=== PATIENT | female | born 1940 | race American Indian/Alaskan Native ===

== ENCOUNTER 2017-09-10 10:07 | Day surgery (SDC) | payer MEDICARE ==
[2017-09-10] MEDS ORDERED: APRESOLINE IV SCH (10:44)
[2017-09-10] MEDS ORDERED: DILAUDID IV PRN (11:20)
--- NOTE | 2017-09-10 11:20 | Anesthesia Day of Surgery ---
Anesthesia Day of Surgery - Day of Surgery Patient Examined: Yes Patient H&P Reviewed: Yes Patient is NPO: Yes
--- NOTE | 2017-09-10 11:20 | Anesthesia Consultation ---
Anesthesia Consult and Med Hx Date of service: 09/10/17 - Airway Anesthetic Teeth Evaluation: Good ROM Head & Neck: Adequate Mental/Hyoid Distance: Adequate Mallampati Class: Class II Intubation Access Assessment: Good - Pulmonary Exam CTA: Yes - Cardiac Exam Cardiac Exam: RRR - Pre-Operative Health Status ASA Pre-Surgery Classification: ASA2 Proposed Anesthetic Plan: General - Pulmonary Hx Smoking: Yes (QUIT 1996) - Cardiovascular System Hx Hypertension: Yes (2005) Hx Heart Murmur: Yes - Central Nervous System Hx Psychiatric Problems: No - Other Systems Hx Alcohol Use: Yes (OCCA) Hx Substance Use: No Hx Cancer: No
[2017-09-10] MEDS ORDERED: NACL 0.9% 1000 ML 1,000 ML IV SCH (11:27)
[2017-09-10] MEDS ORDERED: PEPCID IV NR (11:27)
[2017-09-10] MEDS ORDERED: ANCEF/STERILE WATER 2 GM/20 ML 2 GM/20 ML SYRINGE IV ONE (12:00)
[2017-09-10] MEDS ORDERED: DIPRIVAN 10 MG/ML IV ONE (12:16)
[2017-09-10] MEDS ORDERED: ZOFRAN ONE (12:17)
[2017-09-10] MEDS ORDERED: SUBLIMAZE ONE (12:17)
[2017-09-10] MEDS ORDERED: ceFAZolin 2 GM in NACL 0.9% 100 ML IV ONE (12:30)
[2017-09-10] MEDS ORDERED: MARCAINE 0.5% 30 ML INFILTRATI ONE (12:39)
[2017-09-10] MEDS ORDERED: XYLOCAINE MPF 2% ONE (13:05)
--- NOTE | 2017-09-10 13:10 | Discharge Summary ---
Short Stay Discharge Plan Activity: other (august d/c when stable. elevate arm on pillow today. home health for local care starting wednesday) Weight Bearing Status: Partial Weight Bearing Diet: regular Wound: per wound nurse instructions Additional Instructions: alleve I po q 6-8 hrs prn for breakthrough pain Follow up with: GASPER CONLEY MD [Staff Physician] - 09/14/17
[2017-09-10] MEDS ORDERED: NORCO 5/325 PO PRN (14:13)
[2017-09-10 15:38] VITALS: BP 150/61
--- NOTE | 2017-09-10 18:44 | Operative Report ---
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 POSTOPERATIVE DIAGNOSIS: Chronically infected subcutaneous nodules of left arm. PROCEDURE: Excision and packing of aforementioned area. SURGEON: Braden Price M.D. ANESTHESIA: General. ESTIMATED BLOOD LOSS: Minimal. DRAINS: None. COMPLICATIONS: None. DESCRIPTION OF PROCEDURE: The patient was taken to the operating room and prepped and draped in usual sterile fashion. The multiple infected nodules over the left arm had been outlined with a marking pencil. A 15 blade was used to incise the skin and subcutaneous tissue. Needle tip electrocautery was used to dissect down the subQ down to the nodules. Double skin hooks were used to tract the skin. A needle tip electrocautery was used to dissect the nodules in their entirety. The areas were very indurated and calcified. All nodules were removed en bloc. The specimen was sent fresh to pathology for aerobic and anaerobic cultures as well as permanent pathology. The area was irrigated copiously and dried. Checked for hemostasis and noted to be dry. The outer edges of the incision were closed with interrupted 4-0 Prolene. The center core was packed with quarter-inch iodoform gauze. A 0.5% Marcaine was infiltrated over the area for postoperative pain relief. Kerlix roll and Calos wrap were then applied. The patient tolerated the procedure well and left OR in stable condition. JOB# [id number] BHARAT/KALEB
== END 2017-09-10 15:30 | disposition home or self-care (01) ==
LOC: OR 10:07
PROVIDERS: ATTEND Surgery
DX: D23.62 Other benign neoplasm of skin of left upper limb, including shoulder (principal); I10 Essential (primary) hypertension; Z87.891 Personal history of nicotine dependence; Z79.899 Other long term (current) drug therapy; Z90.710 Acquired absence of both cervix and uterus; Z98.890 Other specified postprocedural states
CPT/HCPCS: 24075; 36415; 82962; 84132; 87116; 88305; J0360; J0690; J2405; J2704; J3010; J7030